=== PATIENT | female | born 1950 | race African-American/Black ===

== ENCOUNTER 2016-09-12 03:41 | Emergency (ER) | payer MEDICARE ==
[~2016-09-12] VITALS: Ht 165.1 cm; Wt 81.2 kg
[~2016-09-12 03:41] MED LIST: AMLO10 PO; GLIP5 PO; LIPI10TA PO
[2016-09-12] MEDS ORDERED: SODIUM CHLOR 0.9% 1000 ML INJ 1,000 ML IV SCH (03:52)
[2016-09-12 03:55] VITALS: BP 191/100; PULSE 86; RESP 18; TEMP 98.9; O2SAT 96
[2016-09-12] MEDS ORDERED: methylPREDNISolone SOD SUCC 125 MG/2 ML VIAL IVP ONE (04:00)
[2016-09-12] MEDS ORDERED: SODIUM CHLORIDE 0.9% FLUSH 5 ML FLUSH IVF PRN (04:00)
[2016-09-12] MEDS ORDERED: diphenhydrAMINE HCL 50 MG/ML VIAL IVP ONE (04:00)
[2016-09-12] MEDS ORDERED: EPINEPHrine HCL (1:1000) 1 MG/ML VIAL IM ONE (04:00)
--- NOTE | 2016-09-12 04:02 | PD ---
HPI Chief Complaint: Allergic/Adverse Reaction Time Seen by Provider: 03:52 Travel History International Travel<30 days: No Contact w/Intl Traveler<30days: No Traveled to known affect area: No History of Present Illness HPI The patient is a 66-year-old female who is known to be allergic to Misael inhibitors, angiotensin II receptor antagonists, losartan and penicillin who took a Naprosyn 500 mg tablet at 1:00 this morning. About one hour later the patient noted tongue itching and later swelling of the tongue. This is the same reaction she gets when she takes Misael inhibitors. She denies any shortness of breath or wheezing. PFSH Past Medical History Hx Anticoagulant Therapy: No Cancer: No Cardiovascular Problems: Yes (HTN, HLD) High Cholesterol: Yes Chemotherapy: No Cerebrovascular Accident: No Diabetes: Yes Diminished Hearing: No Genitourinary: No Hypertension: Yes Musculoskeletal: No Neurologic: No Respiratory: No Immunizations Current: Yes Menopausal: Yes : 5 Para: 5 Tubal Ligation: Yes Past Surgical History Gynecologic Surgery: Yes (Tubal ligation) Social History Alcohol Use: Yes (occ) Tobacco Use: Yes (1 black and mild daily) Substance Use: No Allergies-Medications (Allergen,Severity, Reaction): Coded Allergies: MISAEL Inhibitors (Verified Allergy, Severe, Swelling, 10/19/15) Patient admitted to ICU with angioedema of face 10/19/2015. Told to avoid MISAEL-Is and ARBs, documented on H&P by fruit picker machine operator. Angiotensin II Receptor Antagonists (Verified Allergy, Severe, Swelling, ) Patient admitted with angioedema of upper lip. Losartan (Verified Allergy, Severe, FACE SWOLLEN, 09/12/16) Penicillin (Unverified Allergy, Severe, Rash, 10/19/15) Reported Meds & Prescriptions Reported Meds & Active Scripts Active Prednisone 50 Mg Tab 50 Mg PO DAILY 5 Days Benadryl Allergy (Diphenhydramine HCl) 25 Mg Tab 25 Mg PO Q6H PRN Zantac (Ranitidine HCl) 150 Mg Tab 150 Mg PO BID Flowtuss Liq (Hydrocodone-Guaifenesin Liq) 2.5-200 Mg/5 Ml Soln 5 Ml PO Q6H PRN Reported Lipitor 10 Mg Tab (Atorvastatin Calcium) 10 Mg Tab Unknown Dose PO DAILY Norvasc (Amlodipine Besylate) 10 Mg Tab 10 Mg PO DAILY Glipizide 5 Mg Tab 5 Mg PO DAILY Review of Systems Except as stated in HPI: all other systems reviewed are Neg Physical Exam Narrative GENERAL: Well-nourished, well-developed patient in minimal apparent distress with her left tongue swelling. SKIN: Warm and dry. HEAD: Normocephalic. EYES: No scleral icterus. No injection or drainage. NECK: Supple, trachea midline. No JVD or lymphadenopathy. CARDIOVASCULAR: Regular rate and rhythm without murmurs, gallops, or rubs. RESPIRATORY: Breath sounds equal bilaterally. No accessory muscle use. Lungs clear to auscultation bilaterally. GASTROINTESTINAL: Abdomen soft, non-tender, nondistended. MUSCULOSKELETAL: No cyanosis, or edema. BACK: Nontender without obvious deformity. No CVA tenderness. ENT: There is slight but clearly visible swelling of the left tongue. There is no airway obstruction. There is no stridor present. Data Data Last Documented VS Vital Signs Date Time Temp Pulse Resp B/P Pulse Ox O2 Delivery O2 Flow Rate FiO2 09/12/16 05:26 74 18 182/92 95 Room Air 09/12/16 03:55 98.9 Orders Basic Metabolic Panel (Bmp) (09/12/16 03:52) Complete Blood Count With Diff (09/12/16 03:52) Ecg Monitoring (09/12/16 03:52) Iv Access Insert/Monitor (09/12/16 03:52) Oximetry (09/12/16 03:52) Diphenhydramine Inj (Benadryl Inj) (09/12/16 04:00) Methylprednisolone So Succ Inj (Solumedr (09/12/16 04:00) Sodium Chlor 0.9% 1000 Ml Inj (Ns 1000 M (09/12/16 03:52) Sodium Chloride 0.9% Flush (Ns Flush) (09/12/16 04:00) Epinephrine (1:1000) Inj (Adrenalin (1:1 (09/12/16 04:00) Hydrocodone-Homatropine Liq (Hycodan Liq (09/12/16 05:15) Labs Laboratory Tests Test 09/12/16 03:50 White Blood Count 8.1 TH/MM3 Red Blood Count 4.64 MIL/MM3 Hemoglobin 12.9 GM/DL Hematocrit 39.4 % Mean Corpuscular Volume 85.0 FL Mean Corpuscular Hemoglobin 27.9 PG Mean Corpuscular Hemoglobin 32.8 % Concent Red Cell Distribution Width 13.7 % Platelet Count 317 TH/MM3 Mean Platelet Volume 7.5 FL Neutrophils (%) (Auto) 47.7 % Lymphocytes (%) (Auto) 37.4 % Monocytes (%) (Auto) 11.1 % Eosinophils (%) (Auto) 3.1 % Basophils (%) (Auto) 0.7 % Neutrophils # (Auto) 3.8 TH/MM3 Lymphocytes # (Auto) 3.0 TH/MM3 Monocytes # (Auto) 0.9 TH/MM3 Eosinophils # (Auto) 0.3 TH/MM3 Basophils # (Auto) 0.1 TH/MM3 CBC Comment DIFF FINAL Differential Comment Sodium Level 143 MEQ/L Potassium Level 3.7 MEQ/L Chloride Level 104 MEQ/L Carbon Dioxide Level 29.3 MEQ/L Anion Gap 10 MEQ/L Blood Urea Nitrogen 16 MG/DL Creatinine 0.88 MG/DL Estimat Glomerular Filtration 77 ML/MIN Rate Random Glucose 146 MG/DL Calcium Level 9.3 MG/DL [facility] Medical Decision Making Medical Screen Exam Complete: Yes Emergency Medical Condition: Yes Medical Record Reviewed: Yes Interpretation(s) The CBC is normal and the basic metabolic profile shows a GFR of 77 and glucose of 146 but is otherwise unremarkable. Differential Diagnosis Angioedema, allergic reaction Narrative Course It is now 0507 and the patient's swelling is going down. The patient likely has an allergic basis for angioedema. Plan: The patient will be given 5 days of prednisone, Benadryl, Zantac and follow-up with his primary care physician. He also has a cough and he will be prescribed hydrocodone cough syrup. Diagnosis Primary Impression: Angio-edema Additional Impression: Allergy to NSAIDs Additional Instructions: In addition to Naprosyn you may also be allergic to Motrin, Aleve and all other nonsteroidal anti-inflammatory drugs. Med/Other Pt SpecificInfo: Prescription(s) given Scripts Prednisone 50 Mg Tab50 Mg PO DAILY 5 Days Ref 0 Prov:Fredrick Medley MD 09/12/16 Diphenhydramine (Benadryl Allergy)25 Mg Tab25 Mg PO Q6H PRN (ALLERGIES) #45 TAB Ref 0 Prov:Fredrick Medley MD 09/12/16 Ranitidine (Zantac)150 Mg [id number] Mg PO BID #30 TAB Ref 0 Prov:Fredrick Medley MD 09/12/16 Hydrocodone-Guaifenesin Liq (Flowtuss Liq)2.5-200 Mg/5 Ml Soln5 Ml PO Q6H PRN ( cough) #120 ML Ref 0 Prov:Fredrick Medley MD 09/12/16 Disposition: 01 DISCHARGE HOME Condition: Stable Fredrick Medley MD Sep 12, 2016 04:02
[2016-09-12 04:05] VITALS: RESP 18; O2SAT 97
[2016-09-12 04:07] LABS: AUTOMATED NEUTROPHIL # 3.8 TH/MM3 (1.8-7.7); BASOPHIL # 0.1 TH/MM3 (0-0.2); BASOPHIL % 0.7 % (0.0-2.0); EOSINOPHIL # 0.3 TH/MM3 (0-0.4); EOSINOPHIL % 3.1 % (0.0-4.0); HEMATOCRIT 39.4 % (35.0-46.0); HEMO FLAGS DIFF FINAL; LYMPH % 37.4 % (9.0-44.0); MEAN CORPUSCULAR HEMOGLOBIN 27.9 PG (27.0-34.0); MEAN CORPUSCULAR HGB CONC 32.8 % (32.0-36.0); MONO % 11.1 % (0.0-8.0); NEUT % 47.7 % (16.0-70.0); PLATELET COUNT 317 TH/MM3 (150-450); RED BLOOD COUNT 4.64 MIL/MM3 (4.00-5.30); RED CELL DISTRIBUTION WIDTH 13.7 % (11.6-17.2); WHITE BLOOD COUNT 8.1 TH/MM3 (4.0-11.0)
[2016-09-12 04:40] LABS: POTASSIUM 3.7 MEQ/L (3.5-5.1)
[2016-09-12 04:43] LABS: BICARBONATE 29.3 MEQ/L (21.0-32.0)
[2016-09-12] MEDS ORDERED: HYDR1SOL20 PO (05:13)
[2016-09-12] MEDS ORDERED: HYDROcodone 5 MG/HOMATROPINE 1.5 MG SYRUP 5 ML CUP PO ONE (05:15)
[2016-09-12] MEDS ORDERED: ZANT150T2 PO (05:17)
[2016-09-12] MEDS ORDERED: PRED50 PO (05:17)
[2016-09-12] MEDS ORDERED: BENA25TA3 PO (05:17)
[2016-09-12 05:26] VITALS: BP 182/92; PULSE 74; RESP 18; O2SAT 95
[2016-09-12] MEDS ORDERED: GLIP5TAB8 PO (05:39)
[2016-09-12] MEDS ORDERED: LIPI10TA PO (05:39)
[2016-09-12] MEDS ORDERED: AMLO10TA2 PO (05:39)
[2016-09-12 05:54] VITALS: BP 172/92
== END 2016-09-12 06:08 | disposition home or self-care (01) ==
LOC: PHED 03:41
DX: T78.3XXA Angioneurotic edema, initial encounter (principal); R05 Cough
CPT/HCPCS: 80048; 85025; 96361; 96372; 96374; 96375; 99283; J0171; J1200; J2930; J7030

== ENCOUNTER 2016-12-31 17:55 | Emergency (ER) | payer MEDICARE ==
[~2016-12-31] VITALS: Ht 165.1 cm; Wt 84.1 kg
[~2016-12-31 17:55] MED LIST changes: -AMLO10 PO; +AMLO10TA2 PO; +BENA25TA3 PO; -GLIP5 PO; +GLIP5TAB8 PO; +HYDR1SOL20 PO; +PRED50 PO; +ZANT150T2 PO
[2016-12-31 18:02] VITALS: BP_SYST 186; BP_SYST 190; BP_DIAS 105; BP_DIAS 121; PULSE 82; RESP 16; TEMP 98.5; O2SAT 97
[2016-12-31] MEDS ORDERED: CYCLOBENZAPRINE HCL 10 MG TAB PO ONE ×2 (18:30→18:45)
[2016-12-31] MEDS ORDERED: ACETAMINOPHEN 325 MG TAB PO ONE (18:30)
[2016-12-31] MEDS ORDERED: MONT10TA4 PO (18:36)
--- NOTE | 2016-12-31 18:36 | PD ---
HPI Chief Complaint: Musculoskeletal Complaint Time Seen by Provider: 18:13 Travel History International Travel<30 days: No Contact w/Intl Traveler<30days: No Traveled to known affect area: No History of Present Illness HPI This 66-year-old female is complaining of pain in her neck. She says the pain started about 2 days ago. She does not recall an injury. She is having pain on both sides of the neck. She believes is some muscle spasm. The very sharp lancinating pain that somewhat intermittent. She has not been able to determine what makes it worse. She is not aware of any history of arthritis. She states think she had something like this in the past. She had taken Aleve without much on since she does list Naprosyn as an allergy. She has a history of high blood pressure and diabetes. There is no numbness or tingling. She is not determined anything that makes it worse or better PFSH Past Medical History Hx Anticoagulant Therapy: No Cancer: No Cardiovascular Problems: Yes (htn on meds) High Cholesterol: Yes Chemotherapy: No Cerebrovascular Accident: No Diabetes: Yes (type 2) Diminished Hearing: No Genitourinary: No Hypertension: Yes Musculoskeletal: No Neurologic: No Respiratory: No Immunizations Current: Yes ?: Not Menopausal: Yes : 5 Para: 5 Tubal Ligation: Yes Past Surgical History Gynecologic Surgery: Yes (Tubal ligation) Other Surgery: Yes (Left rotator cuff, tubal ligation) Social History Alcohol Use: Yes (occ) Tobacco Use: Yes (QUIT 1 MONTH AGO) Substance Use: No Allergies-Medications (Allergen,Severity, Reaction): Coded Allergies: RADHA Inhibitors (Verified Allergy, Severe, Swelling, 12/31/16) Patient admitted to ICU with angioedema of face 10/19/2015. Told to avoid RADHA-Is and ARBs, documented on H&P by consumer loan processor. Angiotensin II Receptor Antagonists (Verified Allergy, Severe, Swelling, ) Patient admitted with angioedema of upper lip. Losartan (Verified Allergy, Severe, FACE SWOLLEN, 12/31/16) Naprosyn (Verified Allergy, Severe, Anaphylaxis, 12/31/16) TONGUE SWELLING Penicillin (Unverified Allergy, Severe, Rash, 12/31/16) Reported Meds & Prescriptions Reported Meds & Active Scripts Active Flowtuss Liq (Hydrocodone-Guaifenesin Liq) 2.5-200 Mg/5 Ml Soln 5 Ml PO Q6H PRN Reported Montelukast (Montelukast Sodium) 10 Mg Tab 10 Mg PO HS Glipizide 5 Mg Tab 5 Mg PO DAILY Take 30 minutes before a meal Amlodipine (Amlodipine Besylate) 10 Mg Tab 10 Mg PO DAILY Review of Systems General / Constitutional: No: Fever, Chills Eyes: No: Diploplia, Blurred Vision HENT: No: Headaches, Vertigo Cardiovascular: No: Chest Pain or Discomfort, Palpitations Respiratory: No: Cough, Shortness of Breath Gastrointestinal: No: Nausea, Vomiting Genitourinary: No: Urgency, Frequency Musculoskeletal: Positive: Cramping, Pain, No: Weakness Skin: No Rash, No Itching Neurologic: No: Weakness Physical Exam Narrative GENERAL: Well-developed female. She does appear uncomfortable with pain SKIN: Focused skin assessment warm/dry. HEAD: Atraumatic. Normocephalic. EYES: Pupils equal and round. No scleral icterus. No injection or drainage. ENT: No nasal bleeding or discharge. Mucous membranes pink and moist. NECK: Trachea midline. No JVD. He does have tenderness both sides of the neck as well as the posterior portion of the neck. There is no discernible swelling. CARDIOVASCULAR: Regular rate and rhythm. No murmur appreciated. RESPIRATORY: No accessory muscle use. Clear to auscultation. Breath sounds equal bilaterally. GASTROINTESTINAL: Abdomen soft, non-tender, nondistended. Hepatic and splenic margins not palpable. MUSCULOSKELETAL: No obvious deformities. No clubbing. No cyanosis. No edema. NEUROLOGICAL: Awake and alert. No obvious cranial nerve deficits. Motor grossly within normal limits. Normal speech. PSYCHIATRIC: Appropriate mood and affect; insight and judgment normal. Data Data Last Documented VS Vital Signs Date Time Temp Pulse Resp B/P Pulse Ox O2 Delivery O2 Flow Rate FiO2 12/31/16 18:02 98.5 82 16 190/121 97 186/[address] Cerv Spine W/O Contrast (12/31/16 18:25) Acetaminophen (Tylenol) (12/31/16 18:30) Cyclobenzaprine (Flexeril) (12/31/16 18:30) Cyclobenzaprine (Flexeril) (12/31/16 18:45) MDM Medical Decision Making Medical Screen Exam Complete: Yes Emergency Medical Condition: Yes Medical Record Reviewed: Yes Differential Diagnosis Differential includes muscle spasm, cervical strain, DJD Narrative Course CT scan of the neck was done and shows degenerative changes. She was given Flexeril initially and this really did not produce much relief. I had offered Lortab but she says that she does not tolerate this medication very well. He released with prescription for tramadol Diagnosis Primary Impression: Cervical spine pain Scripts Tramadol 50 Mg Tab50 Mg PO Q6H PRN (PAIN) #30 TAB Ref 0 Prov:Yusuf Ruby MD 12/31/16 Disposition: 01 DISCHARGE HOME Condition: Stable Yusuf Ruby MD Dec 31, 2016 18:36
--- NOTE | 2016-12-31 19:11 | RADHPO ---
EXAM DATE/TIME: 12/31/2016 18:41 [facility] COMPARISON: No previous studies available for comparison. INDICATIONS : Neck pain for four days. No known injury. RADIATION DOSE: 27.44 CTDIvol (mGy) MEDICAL HISTORY : Hypertension. SURGICAL HISTORY : Tubal ligation. Hysterectomy. ENCOUNTER: Initial ACUITY: 4 - 6 days PAIN SCALE: 5/10 LOCATION: neck TECHNIQUE: Volumetric scanning of the cervical spine was performed. Multiplanar reconstructions in the sagittal, coronal and oblique axial planes were performed. Using automated exposure control and adjustment o f the mA and/or kV according to patient size, radiation dose was kept as low as reasonably achievable to obtain optimal diagnostic quality images. FINDINGS: There are a few millimeters of degenerative appearing anterolisthesis at C4/C5. No fracture or acute appearing malalignment. Vertebral bodies have normal height. There is mild to moderate disc space narrowing at C5/C6 and C6/C7 and mild disc space narrowing at th e other levels. Mild uncovertebral and facet osteoarthritis seen essentially throughout. Mild to mode rate degenerative changes with synovial thickening seen anteriorly at C1/C2. A bilobed central to rig ht paracentral disc protrusion is seen at C3/C4, does not appear to be contributing to significant fo raminal or spinal stenosis. There is mild foraminal encroachment at C4/C5, mainly on the right. CONCLUSION: Multilevel degenerative changes as above. No high-grade foraminal or spinal stenosis demonstrated. Gr malaika 1 degenerative appearing anterolisthesis at C4/C5. No fracture or acute appearing malalignment. Akash Cason MD on December 31, 2016 at 19:06 Board Certified Radiologist. This report was verified electronically.
[2016-12-31] MEDS ORDERED: TRAM50TA PO (19:48)
[2016-12-31 19:58] VITALS: BP 212/110; PULSE 69; RESP 16; O2SAT 97
== END 2016-12-31 20:07 | disposition home or self-care (01) ==
LOC: PHED 17:55
DX: M54.2 Cervicalgia (principal); I10 Essential (primary) hypertension; E11.9 Type 2 diabetes mellitus without complications; E78.00 Pure hypercholesterolemia, unspecified; Z87.891 Personal history of nicotine dependence
CPT/HCPCS: 72125; 99284